=== PATIENT | female | born 2005 | race Two or more races ===

== ENCOUNTER 2023-01-10 17:55 | Emergency (ER) | payer OTHER, SELFPAY ==
[2023-01-10 19:18] LABS: #Basophils 0.1 10x3/uL (0.0-0.2); #Eosinphils 0.3 10x3/uL (0.0-0.5); #Monocytes 0.6 10x3/uL (0.0-1.1); %Basophils 0.4 % (0.0-2.0); %Eosinophils 2.2 % (0.0-6.0); %Lymphocytes 23.2 % (18.0-47.0); %Monocytes 4.9 % (0.0-10.0); Hematocrit 37.9 % (34.9-44.5); Mean Corpuscular HGB CONC 36.9 g/dL (32.0-36.0); Mean Corpuscular Hemoglobin 33.7 pg (27.0-33.0); Mean Corpuscular Volume 91.1 fl (81.6-98.3); Platelet Count 347 10x3/uL (150-450); RBC Distribution Width 10.8 % (11.5-14.5); Red Blood Cell (RBC) Count 4.16 10x6/uL (3.90-5.03); White Blood Cell (WBC) Count 11.5 10x3/uL (3.5-10.5)
[2023-01-10 19:29] LABS: BHCG - Serum Negative (NEGATIVE); Pregs Control Background? CLEAR/WHITE (CLR/WHITE); Pregs Control Bar Appear? YES (CONTROL BAR)
[2023-01-10 19:30] LABS: ALT (SGPT) 13 U/L (8-55); AST (SGOT) 18 U/L (5-30); Albumin 3.9 g/dL (3.5-5.0); Alkaline Phosphatase 132 U/L (40-100); Anion Gap 13 mmol/L (10-20); BUN (Urea Nitrogen) 16 mg/dL (8.4-21.0); Bilirubin, Total 0.8 mg/dL (0.2-1.2); Calc. Creatinine Clearance 0 mL/min (70-130); Calcium 9.2 mg/dL (7.8-10.44); Carbon Dioxide 24 mmol/L (22-29); Chloride 106 mmol/L (98-107); Estimated GFR 89; Glucose 93 mg/dL (70-105); Lipase 41 U/L (8-78); Protein, Total 6.9 g/dL (6.0-8.3); Sodium 139 mmol/L (136-145)
[2023-01-10] MEDS ORDERED: Morphine 4 MG/ML VIAL ONE (19:54)
[2023-01-10] MEDS ORDERED: Ondansetron PF 4 MG/2 ML Vial ONE (19:54)
== END 2023-01-10 20:45 | disposition home or self-care (01) ==
LOC: CSHERS 17:55
DX: B27.90 Infectious mononucleosis, unspecified without complication (principal); R10.12 Left upper quadrant pain
CPT/HCPCS: 74177; 80053; 83690; 84703; 85025; J2270; J2405